=== PATIENT | female | born 1950 | race Caucasian/White ===

== ENCOUNTER 2016-09-01 11:19 | Emergency (ER) | payer OTHER ==
[2016-09-01 12:02] VITALS: BP 136/90; PULSE 71; RESP 20; TEMP 98.2; O2SAT 96
[2016-09-01] MEDS ORDERED: predniSONE 20 MG TAB PO ONE (12:58)
--- NOTE | 2016-09-01 13:24 | UCPHY ---
H & P Patient Type: New HPI/ROS: CHIEF COMPLAINT: Cough HISTORY OF PRESENT ILLNESS: several days duration of cough. Some congestion. Some malaise. No chest pain of any kind. No shortness of breath. No headache, fevers, body aches or chills. No nausea or vomiting. No urinary complaints. No trauma. No smoking currently or ever. No history of pulmonary diseases. Symptoms have worsened throughout the days without any predictable improving modifying factors. No headaches or dizziness. No other associated complaints or modifying factors. REVIEW OF SYSTEMS: Ten systems reviewed and are negative unless otherwise noted in the HPI EXAMINATION General Appearance: Alert, no distress Head: normocephalic, atraumatic Eyes: Pupils equal and round, no conjunctival pallor or injection ENT, Mouth: Mucous membranes moist Neck: Normal inspection, supple, non-tender Respiratory: Scattered rhonchi. No consolidation. No distress or retractions Cardiovascular: Regular rate and rhythm Gastrointestinal: Abdomen is soft and nontender Back: non-tender, no bony abnormalities Neurological: A&O, nonfocal, normal gait Skin: Warm and dry, no rash Extremities: Nontender, no pedal edema Psychiatric: Mood and affect normal MDM: cough without any chest pain or history or exam that would suggest pneumonia. Lung sounds do reveal some rhonchi but no consolidation or suspicion of pneumonia. Vital signs are well within normal limits on room air. She is well- appearing and in no acute distress. Nonsmoker. No indication for laboratory studies or chest x-ray, and patient has requested that we not perform a chest x- ray. Treat her presumptively for bronchitis cover for the possibility of bacterial involvement. Follow up with primary care physician in ED precautions discussed. Smoking Status: Never smoked Constitutional: Initial Vital Signs Temperature (C) 98.2 F 09/01/16 11:53 Heart Rate 71 09/01/16 11:53 Respiratory Rate 20 09/01/16 11:53 Blood Pressure 136/90 H 09/01/16 11:53 O2 Sat (%) 96 09/01/16 11:53 O2 Delivery Mode Room Air Allergies/Adverse Reactions: aspirin Allergy (Mild, Verified 09/01/16 11:51) Unknown Home Medications: Medication Instructions Recorded Azithromycin [Zithromax] 250 mg PO DAILY #6 tab 09/01/16 Benzonatate [Tessalon Pearles (RX)] 100 mg PO Q6-8PRN PRN #12 cap 09/01/16 Lipitor 09/01/16 Departure - Departure Disposition: Home, Routine, Self-Care Clinical Impression: Bronchitis, Cough Condition: Good Instructions: Acute Bronchitis (ED), Dextromethorphan (By mouth) Additional Instructions: ED precautions as discussed for worsening symptoms, chest pain or shortness of breath. Prescriptions: Benzonatate [Tessalon Pearles (RX)] 100 mg PO Q6-8PRN PRN #12 cap PRN Reason: Cough, Mild Azithromycin [Zithromax] 250 mg PO DAILY #6 tab - PQRS PQRS Measurement: not applicable
== END 2016-09-01 13:39 | disposition home or self-care (01) ==
LOC: CED 11:19
DX: J20.9 Acute bronchitis, unspecified (principal)
CPT/HCPCS: 99203-PO; G0463-PO

== ENCOUNTER → 2016-12-02 | Outpatient (CLI) | payer OTHER ==
[~2016-12-02] MED LIST: GADOBUTROL 10 ML VIAL IVP ONE
[2016-12-02 13:22] LABS: CREATININE 0.9 mg/dL (0.6-1.0); GLOMERULAR FILTRATION RATE > 60
== END ==
LOC: FIMAGING 12:38
PROVIDERS: ATTEND Neurological Surgery
DX: M48.06 Spinal stenosis, lumbar region (principal); M43.16 Spondylolisthesis, lumbar region; M51.26 Other intervertebral disc displacement, lumbar region; M12.88 Other specific arthropathies, not elsewhere classified, other specified site; Z86.018 Personal history of other benign neoplasm
CPT/HCPCS: 72158; A9585

== ENCOUNTER → 2017-01-14 | Outpatient (CLI) | payer OTHER | LOC: FIMAGING 11:53 | PROVIDERS: ATTEND Physician Assistant Surgical | DX: M50.921 Unspecified cervical disc disorder at C4-C5 level (principal); M50.922 Unspecified cervical disc disorder at C5-C6 level; M51.36 Other intervertebral disc degeneration, lumbar region; M51.35 Other intervertebral disc degeneration, thoracolumbar region; Z98.1 Arthrodesis status ==

== ENCOUNTER 2017-02-09 06:10 | Inpatient (IN) | payer OTHER ==
[~2017-02-09 06:10] MED LIST changes: +CHLORHEXIDINE GLUC HIBICLENS 118 ML BTL TP ONE; +DEXAMETHASONE 10 MG/ML VIAL IVP ONE; -GADOBUTROL 10 ML VIAL IVP ONE; +ceFAZolin 2 GM/DEXTROSE 100 ML IV ONE; +fentaNYL 100 MCG/2 ML INJ IT ONE; +morphINE PF 5 MG/10 ML INJ IT ONE
[2017-02-09] MEDS ORDERED: LR 1,000 ML IV ONE (06:31)
[2017-02-09] MEDS ORDERED: LIDOCAINE 1% 5 ML SDV ID PRN (06:31)
--- NOTE | 2017-02-09 07:07 | PDHPUP ---
History & Physical Update H&P update statement: This history and physical update is based on an assessment of the patient which was completed after admission or registration (within 24 hours), but prior to the surgery/procedure. H&P update: H&P reviewed & patient examined, no change in patient's condition since H&P completed
[2017-02-09] MEDS ORDERED: THROMBIN (BOVINE) 5,000 UNIT VIAL TP ONE (07:54)
[2017-02-09] MEDS ORDERED: BUPIVACAINE/EPI 0.25% 30 ML SDV ONE (07:54)
[2017-02-09] MEDS ORDERED: BACITRACIN 50,000 UNITS/10 ML SYR IRR ONE (07:54)
[2017-02-09] MEDS ORDERED: BUPIVACAINE 0.25% 30 ML SDV ONE (07:54)
[2017-02-09] MEDS ORDERED: MIDAZOLAM 2 MG/2 ML VIAL ONE (08:04)
[2017-02-09] MEDS ORDERED: PROPOFOL/EMULSION 500 MG/50 ML BOTTLE IV ONE (08:04)
[2017-02-09] MEDS ORDERED: fentaNYL 100 MCG/2 ML INJ ONE ×3 (08:04→09:54)
[2017-02-09] MEDS ORDERED: ROCURONIUM 50 MG/5 ML VIAL ONE (08:09)
[2017-02-09] MEDS ORDERED: LIDOCAINE 2% 5 ML SDV ONE (08:09)
[2017-02-09] MEDS ORDERED: ALBUMIN 5% 250 ML BOTTLE IV ONE (08:18)
[2017-02-09] MEDS ORDERED: MEPERIDINE 25 MG/ML SYR IVP PRN (08:54)
[2017-02-09] MEDS ORDERED: PROMETHAZINE HCL 25 MG/ML INJ IVP PRN (08:54)
[2017-02-09] MEDS ORDERED: METOCLOPRAMIDE 10 MG/2 ML VIAL IVP PRN (08:54)
[2017-02-09] MEDS ORDERED: ONDANSETRON 4 MG/2 ML VIAL IVP PRN ×2 (08:54→12:22)
[2017-02-09] MEDS ORDERED: LR 500 ML IV PRN (08:54)
[2017-02-09] MEDS ORDERED: DEXAMETHASONE 4 MG/ML VIAL IVP PRN (08:54)
[2017-02-09] MEDS ORDERED: fentaNYL 100 MCG/2 ML INJ IVP PRN (08:54)
[2017-02-09] MEDS ORDERED: NALOXONE HCL 0.4 MG/ML INJ IVP PRN ×2 (08:54→12:22)
--- NOTE | 2017-02-09 08:58 | PDANEPAE ---
ANE Past Medical History - Cardiovascular History Hx Hypertension: No Hx Arrhythmias: No Hx Chest Pain: No Hx Coronary Artery / Peripheral Vascular Disease: No Hx CHF / Valvular Disease: No Hx Palpitations: No - Pulmonary History Hx COPD: No Hx Asthma/Reactive Airway Disease: No Hx Recent Upper Respiratory Infection: No Hx Oxygen in Use at Home: No - Neurologic History Hx Cerebrovascular Accident: No Hx Seizures: No Hx Dementia: No - Endocrine History Hx Diabetes: No - Renal History Hx Renal Disorders: No - Liver History Hx Hepatic Disorders: No - Neurological & Psychiatric Hx Hx Neurological and Psychiatric Disorders: No - Cancer History Hx Cancer: No - Congenital Disorder History Hx Congenital Disorders: No - GI History Hx Gastrointestinal Disorders: No - Chronic Pain History Chronic Pain: Yes (back pain) ANE Review of Systems - Exercise capacity METS (RN): 4 METS ANE Patient History - Allergies Allergies/Adverse Reactions: aspirin Allergy (Mild, Verified 01/24/17 11:50) DROPPED BP - Home Medications Home Medications: Atorvastatin Calcium [Lipitor 10 mg (*)] 10 mg PO DAILY 09/01/16 [Last Taken 07/14] Cholecalciferol Vit D3 [Vitamin D3 (*)] 1,000 units PO DAILY 01/24/17 [Last Taken 02/02/17] Docusate Sodium [Colace 100 MG (*)] 100 mg PO DAILY PRN 01/24/17 [Last Taken 08/13] Acetaminophen [Tylenol ES 500 mg (*)] 500 mg PO DAILY PRN 01/31/17 [Last Taken 02/08/17] Vitamin B Complex [B Complex] 1 each PO DAILY 01/31/17 [Last Taken 02/08/17] valACYclovir [Valtrex (*)] 500 mg PO DAILY 01/31/17 [Last Taken 02/08/17] - NPO status NPO Since - Liquids (Date): 02/08/17 NPO Since - Liquids (Time): 21:00 NPO Since - Solids (Date): 02/08/17 NPO Since - Solids (Time): 18:00 - Smoking Hx Smoking Status: Never smoked - Family Anes Hx Family Hx Anesthesia Complications: none ANE Labs/Vital Signs - Vital Signs Blood Pressure: 114/73 Heart Rate: 63 Respiratory Rate: 16 O2 Sat (%): 91 Height: 157.48 cm Weight: 54.431 kg ANE Physical Exam - Airway Mallampati Score: Class 1 Mouth exam: normal dental/mouth exam - Pulmonary Pulmonary: no respiratory distress - Cardiovascular Cardiovascular: regular rate and rhythym - ASA Status ASA Status: II ANE Anesthesia Plan Anesthesia Plan: general endotracheal anesthesia
[2017-02-09] MEDS ORDERED: epHEDrine SULFATE 10 MG/ML SYR ONE ×3 (09:04→10:18)
[2017-02-09] MEDS ORDERED: METOCLOPRAMIDE 10 MG/2 ML VIAL ONE (09:14)
[2017-02-09] MEDS ORDERED: ONDANSETRON 4 MG/2 ML VIAL ONE (09:14)
[2017-02-09] MEDS ORDERED: RANITIDINE 50 MG/2 ML VIAL ONE (09:14)
[2017-02-09] MEDS ORDERED: SUGAMMADEX SODIUM 200 MG/2 ML VIAL IVP ONE (09:14)
[2017-02-09] MEDS ORDERED: morphINE PF 10 MG/10 ML INJ ONE (09:54)
[2017-02-09] MEDS ORDERED: PHENYLEPHRINE HCL 100 MCG/ML SYR ONE (10:18)
[2017-02-09] MEDS ORDERED: DOCUSATE SODIUM 100 MG CAP PO PRN (10:49)
--- NOTE | 2017-02-09 10:57 | SOAPPROG ---
SOAP Progress Note Assessment/Plan: Assessment: 66 yo F sp L3/4 TLIF Plan: stable LSO brace when out of bed PT/OT scd/john/lovenox for dvt prophylaxis please call with neuro changes 02/09/17 10:55 Subjective: + back pain, no leg pain. Objective: Vital Signs Temp Pulse Resp BP Pulse Ox 37.2 C 63 16 114/73 91 L 02/09/17 06:34 02/09/17 08:57 02/09/17 08:57 02/09/17 08:57 02/09/17 08:57 Awake, alert PERRL, no facial droop MOEx 4, 5/5 LE + light touch ICD10 Worksheet Patient Problems: Problems Problem Status Onset Fusion of spine of lumbar region Acute - ICD10 Problem Qualifiers (1) Fusion of spine of lumbar region
--- NOTE | 2017-02-09 11:22 | POSTANESTH ---
Post Anesthetic Evaluation Cardiovascular Status: Normal, Stable Respiratory Status: Normal, Stable Level of Consciousness/Mental Status: Mildly Sleepy, Arousable Pain Control: Adequate, Prn Tx Ordered Nausea/Vomiting Control: Adequate, Prn Tx Ordered Complications Possibly Related to Anesthesia: None Noted
--- NOTE | 2017-02-09 12:18 | GOP ---
[f rep st] OPERATIVE REPORT DATE OF OPERATION: 02/09/2017 SURGEON: Aldo Stack MD COKE BURNER: Greg Westbrook. ANESTHESIA: General endotracheal. PREOPERATIVE DIAGNOSIS: Critical spinal stenosis at L3-4 with unstable spondylolisthesis and intrac table low back pain and right greater than left lower extremity radiculopathy and neurogenic claudic ation. Failed conservative care. POSTOPERATIVE DIAGNOSIS: Critical spinal stenosis at L3-4 with unstable spondylolisthesis and intra ctable low back pain and right greater than left lower extremity radiculopathy and neurogenic claudi cation. Failed conservative care. PROCEDURE PERFORMED: Mini open exposure for right-sided far lateral transpedicular decompression at the L3-4 level with a redo right L4-5 posterior hemilaminectomy and foraminotomy. L3-4 posterior n onsegmental (pedicles ). Fixation and posterolateral fusion with local autograft and bone morphogenic protein and morselized allograft. L3-4 posterior/transforaminal lumbar interbody fusion with 2 structural PEEK interbody spacers, local autograft and bone morphogenic protein and morseliz ed allograft. Use of intraoperative microscopy, fluoroscopy and computer volumetric stereotactic na vigation with intraoperative neurophysiologic testing. Injection of intrathecal narcotic analgesics for postoperative pain control. FINDINGS: ESTIMATED BLOOD LOSS: 75 cc. INDICATIONS: The patient is a 66-year-old woman with critical spinal stenosis and lateral recess im pingement at the L3-4 level as well as unstable spondylolisthesis. She has had prior surgery at the L4-5 level. She has failed extensive conservative care and presents now for surgical decompression and stabilization. DESCRIPTION OF PROCEDURE: After informed consent was obtained, the patient was taken to the operati ng room and placed in a prone position on David table. The lumbosacral area was prepped and drape d in a sterile fashion. After fluoroscopic localization of the correct level, the subcutaneous and intramuscular tissues were infiltrated with local anesthesia. A midline linear incision was then cr eated over the L3-4 spinous processes. This was carried down the fascial layer, which was incised w ith the monopolar electrocautery and carried in the subperiosteal plane along the spinous processes at the lamina of L3. The dissection was carried down to L5 in order to identify normal tissue and c ome back onto the L4 level where there was no lamina or spinous process. Once the normal anatomy wa s carefully dissected out and re-verified using intraoperative fluoroscopy, the area between the spi nous processes was carefully exposed. Under high-power microscopy, the right-sided far lateral melendez spedicular decompression was performed at the L3-4 level with complete unroofing of the facet joint and neural foramina at L3 and L4. There was quite a bit of scar tissue from the prior surgery at L4 -5 and a redo L4-5 posterior hemilaminectomy and foraminotomy was necessary in order to adequately d ecompress the thecal sac and nerve root. Following adequate decompression, the [email or web address] ional system was brought in, and using computer volumetric stereotactic navigation, pedicle screws w ere placed at L3 and L4 bilaterally. Each individual screw was tested neurophysiologically with mon opolar stimulation and interpretation of the potentials by the surgeon. Rods were then placed and s ecured under distraction, during which time a complete diskectomy was performed at the L3-4 level wi th preparation of the endplates and placement of 2 structural PEEK interbody spacers, local autograf t bone morphogenic protein and morselized allograft for an L3-4 posterior/transforaminal lumbar inte rbody fusion. Following this, the screw and shalini system were placed in a slight amount of compressio n in order to facilitate bony union and to minimize the potential for posterior graft migration. Fo llowing re-verification of good positioning of the screws, rods and interbody spacers, the wound was copiously irrigated with antibiotic irrigation, and meticulous hemostasis was again achieved. 200 mcg of Duramorph along with 50 mcg of fentanyl were injected intrathecally for postoperative pain co ntrol. The remaining facet joint and lamina on the left side were extensively decorticated, and the residual local autograft along with bone morphogenic protein was placed out laterally for posterola teral fusion at the L3-4 level. The subcutaneous and intramuscular tissues were re-infiltrated with local anesthesia, and the wound was closed in a layered fashion using interrupted Vicryl sutures, f ollowed by Steri-Strips on the skin. COMPLICATIONS: None. DISPOSITION: The patient was extubated and transferred to the recovery room in stable condition. /[id number]/MODL
[2017-02-09] MEDS ORDERED: MAGNESIUM HYDROXIDE 30 ML UDCUP PO PRN (12:22)
[2017-02-09] MEDS ORDERED: HYDROmorphONE/DILAUDID 6 MG/30 ML PCA IV PRN (12:22)
[2017-02-09] MEDS ORDERED: ONDANSETRON DISINTEGRATING 4 MG TAB PO PRN (12:22)
[2017-02-09] MEDS ORDERED: oxyCODONE IR 5 MG TAB PO PRN ×2 (12:22)
[2017-02-09] MEDS ORDERED: LACTULOSE 20 GM/30 ML UDCUP PO PRN (12:22)
[2017-02-09] MEDS ORDERED: METHOCARBAMOL 750 MG TAB PO PRN (12:22)
[2017-02-09] MEDS ORDERED: NS 1,000 ML IV SCH (12:22)
[2017-02-09] MEDS ORDERED: BISACODYL 10 MG SUPP PR PRN (12:22)
[2017-02-09] MEDS ORDERED: diphenhydrAMINE 25 MG CAP PO PRN (12:22)
[2017-02-09] MEDS ORDERED: HYDROCODONE/APAP 5/325 TAB PO PRN (12:22)
[2017-02-09] MEDS: ACETAMINOPHEN 500 MG TAB PO SCH ×2 (13:12→22:25)
[2017-02-09] MEDS: ceFAZolin 2 GM/DEXTROSE 100 ML IV SCH ×2 (13:13→22:35)
[2017-02-09] MEDS: POLYETHYLENE GLYCOL 3350 17 GM PKT PO SCH ×2 (19:19→22:25)
[2017-02-09] MEDS: SENNOSIDES/DOCUSATE SODIUM TAB PO SCH (22:24)
[2017-02-09] MEDS: FAMOTIDINE 20 MG TAB PO SCH (22:25)
[2017-02-09] MEDS: morphINE SR 15 MG TAB PO SCH (22:29)
[2017-02-10] MEDS: ACETAMINOPHEN 500 MG TAB PO SCH ×2 (06:38→14:57)
--- NOTE | 2017-02-10 07:37 | SOAPPROG ---
SOAP Progress Note Assessment/Plan: Assessment: 66 yo F POD #1 L3/4 TLIF Plan: stable and doing well overall :) LSO brace when out of bed PT/OT x-rays today scd/john/lovenox for dvt prophylaxis please call with neuro changes dc home later today patient was seen by DR Yuan 02/09/17 10:55 02/10/17 07:35 Subjective: + back pain, no leg pain, no weakness. Objective: Vital Signs Temp Pulse Resp BP Pulse Ox 37.1 C 72 16 108/56 L 94 02/10/17 03:41 02/10/17 03:41 02/10/17 03:41 02/10/17 03:41 02/10/17 03:41 02/09/17 02/10/17 02/11/17 05:59 05:59 05:59 Intake Total 1100 Output Total 645 200 Balance 455 -200 AAOX4, + FC PERRL, no facial droop 5/5 + light touch C/D/I ICD10 Worksheet Patient Problems: Problems Problem Status Onset Fusion of spine of lumbar region Acute - ICD10 Problem Qualifiers (1) Fusion of spine of lumbar region
[2017-02-10] MEDS: SENNOSIDES/DOCUSATE SODIUM TAB PO SCH (08:28)
[2017-02-10] MEDS: FAMOTIDINE 20 MG TAB PO SCH (08:28)
[2017-02-10] MEDS: POLYETHYLENE GLYCOL 3350 17 GM PKT PO SCH (08:29)
[2017-02-10] MEDS ORDERED: CHOLECALCIFEROL VIT D3 1,000 UNITS TAB PO SCH (09:00)
[2017-02-10] MEDS ORDERED: ATORVASTATIN CALCIUM 10 MG TAB PO SCH (09:00)
[2017-02-10] MEDS ORDERED: ENOXAPARIN 40 MG/0.4 ML SYR SC SCH (09:00)
[2017-02-10] MEDS ORDERED: valACYclovir 500 MG TAB PO SCH (09:00)
[2017-02-10] MEDS: morphINE SR 15 MG TAB PO SCH (09:01)
[2017-02-10 09:40] VITALS: O2SAT 93
[2017-02-10 11:54] VITALS: BP 98/51; PULSE 72; RESP 14; TEMP 98.1
--- NOTE | 2017-02-10 15:24 | PDIAF ---
- Diagnosis Code Status: Full Code - Medication Management Discharge Medications: Medications to Continue on Transfer Atorvastatin Calcium [Lipitor 10 mg (*)] 10 mg PO DAILY 09/01/16 [Last Taken 07/14] Cholecalciferol Vit D3 [Vitamin D3 (*)] 1,000 units PO DAILY 01/24/17 [Last Taken 02/02/17] Docusate Sodium [Colace 100 MG (*)] 100 mg PO DAILY PRN 01/24/17 [Last Taken 08/13] Acetaminophen [Tylenol ES 500 mg (*)] 500 mg PO DAILY PRN 01/31/17 [Last Taken 02/08/17] Vitamin B Complex [B Complex] 1 each PO DAILY 01/31/17 [Last Taken 02/08/17] valACYclovir [Valtrex (*)] 500 mg PO DAILY 01/31/17 [Last Taken 02/08/17] Diazepam [Valium 5 MG (*)] 5 mg PO TID PRN #15 tab 02/10/17 [Last Taken Unknown] Methocarbamol [Robaxin 750 mg (*)] 750 mg PO QID PRN #0 tab 02/10/17 [Last Taken Unknown] Ondansetron Odt [Zofran Odt 4 mg (*)] 4 - 8 mg PO Q6HRS PRN #0 tab 02/10/17 [ Last Taken Unknown] morphINE SR [Ms Contin/Oramorph 15 mg (*)] 30 mg PO BID #0 tab 02/10/17 [Last Taken Unknown] oxyCODONE IR [Oxycodone Ir (*)] 5 - 10 mg PO Q4HRS PRN #0 tab 02/10/17 [Last Taken Unknown] Discharge Medications: Refer to the Discharge Home Medication list for PRN reason. - Orders Services needed: Registered Nurse, Physical Therapy, Occupational Therapy Diet Recommendation: no restrictions on diet Diet Texture: Regular Texture Diet - Follow Up Care Current Providers and Referrals: Sonia Tavares MD [Primary Care Provider] -
== END 2017-02-10 17:09 | disposition home health service (06) | DRG 460 ==
LOC: F3N 06:10
PROVIDERS: ADMIT Neurological Surgery; ATTEND Neurological Surgery
PROC: 0SG00AJ Fusion of Lumbar Vertebral Joint with Interbody Fusion Device, Posterior Approach, Anterior Column, Open Approach (ICD-10-PCS; principal; 2017-02-09 08:15)
PROC: 01NB0ZZ Release Lumbar Nerve, Open Approach (ICD-10-PCS; principal; 2017-02-09 08:15)
PROC: 3E0U0GB Introduction of Recombinant Bone Morphogenetic Protein into Joints, Open Approach (ICD-10-PCS; principal; 2017-02-09 08:15)
DX: M48.06 Spinal stenosis, lumbar region (principal); M48.56XA Collapsed vertebra, not elsewhere classified, lumbar region, initial encounter for fracture; M51.16 Intervertebral disc disorders with radiculopathy, lumbar region; Z98.1 Arthrodesis status
CPT/HCPCS: 97161-GP; 97166-GO; C1713; C1762; G8978-GP-CJ; G8979-GP-CI; G8987-GO-CI; G8988-GO-CI; G8989-GO-CI; J0690; J1650; J2250; J2274; J2370; J2405; J2704; J2765; J2780; J3010; P9041

== ENCOUNTER → 2017-04-12 | Outpatient (CLI) | payer OTHER | LOC: FIMAGING 15:58 | PROVIDERS: ATTEND Internal Medicine | DX: Z12.31 Encounter for screening mammogram for malignant neoplasm of breast (principal) | CPT/HCPCS: G0202 ==

== ENCOUNTER → 2017-06-05 | Outpatient (CLI) | payer OTHER | LOC: CIMAGING 17:47 | PROVIDERS: ATTEND Physician Assistant Surgical | DX: Z09 Encounter for follow-up examination after completed treatment for conditions other than malignant neoplasm (principal); Z98.1 Arthrodesis status | CPT/HCPCS: 72100-PO ==

== ENCOUNTER → 2017-09-15 | Outpatient (CLI) | payer OTHER | LOC: CIMAGING 17:28 | PROVIDERS: ATTEND Physician Assistant Surgical | DX: Z98.1 Arthrodesis status (principal) | CPT/HCPCS: 72100-PO ==

== ENCOUNTER → 2018-01-02 | Outpatient (CLI) | payer OTHER | LOC: FIMAGING 14:44 | PROVIDERS: ATTEND Physician Assistant Surgical | DX: Z98.1 Arthrodesis status (principal); M35.7 Hypermobility syndrome ==

== ENCOUNTER 2018-03-06 08:21 | Inpatient (IN) | payer OTHER ==
[~2018-03-06 08:21] MED LIST changes: +*INTRAOP 1000MG*TRANEX ACID/NS 100 ML IV ONE; -CHLORHEXIDINE GLUC HIBICLENS 118 ML BTL TP ONE; -DEXAMETHASONE 10 MG/ML VIAL IVP ONE; +TRANEXAMIC ACID 1,000 MG in NS (SYRINGE) 50 ML IV ONE; -ceFAZolin 2 GM/DEXTROSE 100 ML IV ONE; -fentaNYL 100 MCG/2 ML INJ IT ONE; -morphINE PF 5 MG/10 ML INJ IT ONE
[2018-03-06] MEDS ORDERED: LIDOCAINE 1% 2 ML INJ ID PRN (08:52)
[2018-03-06] MEDS ORDERED: ceFAZolin 2 GM/DEXTROSE 100 ML IV ONE (08:52)
[2018-03-06] MEDS ORDERED: LR 1,000 ML IV ONE (08:52)
[2018-03-06] MEDS ORDERED: ACETAMINOPHEN 500 MG TAB PO ONE (08:52)
[2018-03-06] MEDS ORDERED: GABAPENTIN 300 MG CAP PO ONE (08:52)
[2018-03-06] MEDS ORDERED: BUPIVACAINE 0.25% 30 ML SDV ONE ×2 (09:57→11:11)
[2018-03-06] MEDS ORDERED: CHLORHEXIDINE GLUC HIBICLENS 118 ML BTL TP ONE (09:57)
[2018-03-06] MEDS ORDERED: THROMBIN (BOVINE) 5,000 UNIT VIAL TP ONE (09:57)
[2018-03-06] MEDS ORDERED: BACITRACIN 50,000 UNITS/10 ML SYR IRR ONE ×2 (09:58→14:04)
[2018-03-06] MEDS ORDERED: CITRATE DEXTROSE SOLN 500 ML BAG ONE (09:58)
[2018-03-06] MEDS ORDERED: EPINEPHrine 1 MG/ML INJ ONE (09:58)
[2018-03-06] MEDS ORDERED: THROMBIN (BOVINE) 20,000 UNIT VIAL TP ONE (10:06)
--- NOTE | 2018-03-06 10:46 | PDHPUP ---
History & Physical Update H&P update statement: This history and physical update is based on an assessment of the patient which was completed after admission or registration (within 24 hours), but prior to the surgery/procedure. H&P update: no change in patient's condition since H&P completed
[2018-03-06] MEDS ORDERED: PROPOFOL 200 MG/20 ML VIAL ONE ×2 (10:59)
--- NOTE | 2018-03-06 11:06 | PDANEPAE ---
ANE Past Medical History - Cardiovascular History Hx Hypertension: No Hx Arrhythmias: No Hx Chest Pain: No Hx Coronary Artery / Peripheral Vascular Disease: No Hx CHF / Valvular Disease: No Hx Palpitations: No - Pulmonary History Hx COPD: No Hx Asthma/Reactive Airway Disease: No Hx Recent Upper Respiratory Infection: No Hx Oxygen in Use at Home: No Hx Sleep Apnea: No Sleep Apnea Screening Result - Last Documented: Negative - Neurologic History Hx Cerebrovascular Accident: No Hx Seizures: No Hx Dementia: No - Endocrine History Hx Diabetes: No Hypothyroid: No Hyperthyroid: No Obesity: no - Renal History Hx Renal Disorders: No Renal History Comment: UTIs distant past. - Liver History Hx Hepatic Disorders: No - Neurological & Psychiatric Hx Hx Neurological and Psychiatric Disorders: Yes Neurological / Psychiatric History Comment: sciatic pain - Cancer History Hx Cancer: No - Congenital Disorder History Hx Congenital Disorders: No - GI History Hx Gastrointestinal Disorders: No Gastrointestinal History Comment: easily constipated - Other Health History Other Health History: 04/11/15 trauma R shoulder to be repaired. - Chronic Pain History Chronic Pain: No - Surgical History Prior Surgeries: 2004-benign growth removed around lumbar spinal cord. Tubes tied 1977. 2004-cervical herniated disc repair. pilondal cyst removed. right rotator cuff repiar 06/13. spinal fusion 2016 ANE Review of Systems Review of Systems: - Exercise capacity METS (RN): 5 METS ANE Patient History - Allergies Allergies/Adverse Reactions: aspirin Allergy (Mild, Verified 02/16/18 16:21) DROPPED BP - Home Medications Home Medications: Atorvastatin Calcium [Lipitor 10 mg (*)] 10 mg PO DAILY18 09/01/16 [Last Taken 03/05/18] Docusate Sodium [Colace 100 MG (*)] 100 mg PO HS 01/24/17 [Last Taken 03/05/18] Acetaminophen [Tylenol ES 500 mg (*)] 500 mg PO DAILY PRN 01/31/17 [Last Taken 02/27/18] valACYclovir [Valtrex (*)] 500 mg PO DAILY 01/31/17 [Last Taken 03/05/18] Gabapentin [Neurontin 300 MG (*)] 300 mg PO TID 02/15/18 [Last Taken 03/06/18] Sennosides/Docusate Sodium [Senna-S Tablet] 1 each PO DAILY 02/15/18 [Last Taken 03/05/18] - NPO status NPO Since - Liquids (Date): 03/05/18 NPO Since - Liquids (Time): 18:00 NPO Since - Solids (Date): 03/05/18 NPO Since - Solids (Time): 18:00 - Smoking Hx Smoking Status: Never smoked - Family Anes Hx Family Hx Anesthesia Complications: none ANE Labs/Vital Signs - Vital Signs Blood Pressure: 107/73 Heart Rate: 66 Respiratory Rate: 18 O2 Sat (%): 94 Height: 157.48 cm Weight: 56.699 kg ANE Physical Exam - Airway Neck exam: decreased ROM Mallampati Score: Class 2 Mouth exam: small mouth opening - Pulmonary Pulmonary: no respiratory distress - Cardiovascular Cardiovascular: regular rate and rhythym ANE Anesthesia Plan Anesthesia Plan: general endotracheal anesthesia
[2018-03-06] MEDS ORDERED: fentaNYL 250 MCG/5 ML INJ ONE (11:14)
[2018-03-06] MEDS ORDERED: REMIFENTANIL HCL 1 MG VIAL ONE ×2 (11:15)
[2018-03-06] MEDS ORDERED: ePHEDrine SULFATE 25 MG/5 ML SYR ONE (11:27)
[2018-03-06] MEDS ORDERED: ONDANSETRON 4 MG/2 ML VIAL ONE (11:28)
[2018-03-06] MEDS ORDERED: DEXAMETHASONE 4 MG/ML VIAL ONE (11:28)
[2018-03-06] MEDS ORDERED: ROCURONIUM 50 MG/5 ML VIAL ONE (11:28)
[2018-03-06] MEDS ORDERED: LIDOCAINE 2% 5 ML SDV ONE (11:28)
[2018-03-06] MEDS ORDERED: PHENYLEPHRINE HCL 100 MCG/ML SYR ONE (12:15)
[2018-03-06] MEDS ORDERED: GLYCOPYRROLATE 0.2 MG/1 ML VIAL ONE ×2 (12:30→15:04)
[2018-03-06] MEDS: fentaNYL 50 MCG in SYRINGE INTRATHECAL 1 SYR IT ONE ×2 (14:46→15:03)
[2018-03-06] MEDS: morphINE PF 0.2 MG in SYRINGE INTRATHECAL 1 SYR IT ONE ×2 (14:47→15:03)
[2018-03-06] MEDS ORDERED: LIDOCAINE 1% 2 ML INJ ONE (14:54)
--- NOTE | 2018-03-06 15:45 | SOAPPROG ---
SOAP Progress Note Assessment/Plan: POST OP CHECK Assessment: doing well sp/ L3/4 hdwr removal and L2/3 and L4/5 TLIF with L2-5 fusion Plan: CPM IN PACU AVINASH to bulb suction HOB as tolerated transfer to floor per protocol 03/06/18 15:43 Subjective: groggy, but opens eyes to tactile stim and follows commands, appears comfortable Objective: Vital Signs Temp Pulse Resp BP Pulse Ox 36.8 C 66 18 107/73 94 03/06/18 08:56 03/06/18 11:06 03/06/18 11:06 03/06/18 11:06 03/06/18 11:06 Vitals: BP:117/86 HR:82 O2: 100% Neuro: FULLER, sens +LT throughout, following commands ICD10 Worksheet Patient Problems: Problems Problem Status Onset Fusion of spine of lumbar region Acute
--- NOTE | 2018-03-06 15:46 | GOP ---
[f rep st] OPERATIVE REPORT DATE OF OPERATION: 03/06/2018 SURGEON: Aldo Stack MD NEUROSURGEON: Aldo Stack MD METALIZING MACHINE OPERATOR AUTOMATIC: MARANDA Zuluaga ANESTHESIA: General endotracheal. PREOPERATIVE DIAGNOSIS: 1. Severe multilevel lumbar stenosis/sedation adjacent level degeneration at L2-3 and L4, status pos t prior L3-4 decompression stabilization with instrumentation. 2. Right-sided L2-3 facet cyst and severe lateral recess and neural foraminal encroachment at both L 2-3 and L4-5. 3. Intractable back pain, intractable right greater than left lower extremity radicular and neurogen ic claudication symptoms. Failed conservative care. POSTOPERATIVE DIAGNOSIS: 1. Severe multilevel lumbar stenosis/sedation adjacent level degeneration at L2-3 and L4, status pos t prior L3-4 decompression stabilization with instrumentation. 2. Right-sided L2-3 facet cyst and severe lateral recess and neural foraminal encroachment at both L 2-3 and L4-5. 3. Intractable back pain, intractable right greater than left lower extremity radicular and neurogen ic claudication symptoms. Failed conservative care. PROCEDURE PERFORMED: 1. Removal of posterior nonsegmental (pedicle screw) fixation at L3-4 with re-instrumentation from L 2-L5 with pedicle screws and axle device. 2. Right-sided L2-3 and L4-5 far lateral transpedicular decompression with facetectomies and facet c yst removal at L2-3. 3. L2 through L5 posterolateral fusion with L2-3 and L4-5 posterior/transforaminal lumbar interbody fusions with 2 structural PEEK interbody spacers, local autograft and bone morphogenic protein at eac h level. 4. Use of intraoperative microscopy, fluoroscopy, and computer volumetric stereotactic navigation [facility] intraoperative neurophysiologic testing. 5. Injection of intrathecal narcotic analgesics and subcutaneous and intramuscular local anesthesia for postoperative pain control. FINDINGS: ESTIMATED BLOOD LOSS: 275 cc. INDICATIONS: Patient has a history of a L3-4 decompression stabilization with instrumentation and se alex adjacent level degeneration at the above area and both levels L2-3 and L4-5 with severe central canal and neural foraminal and lateral recess impingement, and a facet cyst at L2-3. She has failed extensive conservative care and has ongoing intractable back and leg symptoms and presents now for re moval and replacement of instrumentation, fusion, and decompression from L2-L5. DESCRIPTION OF PROCEDURE: After informed consent was obtained, the patient was taken to the operatin g room and placed in the prone position on the David table. The lumbosacral area was prepped and d raped in a sterile fashion. After fluoroscopic localization of the correct level, the subcutaneous a nd intramuscular tissues were infiltrated with local anesthesia. A midline linear incision was then created from approximately L2-L5. This was carried down to the fa scial layer, which was then incised using monopolar electrocautery and carried in the subperiosteal p albert along the spinous processes and out the lamina bilaterally. Intraoperative fluoroscopy was agai n used to verify the correct levels. The prior instrumentation was carefully identified and carefull y dissected out and removed in the standard fashion at L3-4. The fusion was inspected and explored. Following this, the dissection was carried rostrally and caudally from L2 to L5. There was quite a b it of scar tissue that was carefully dissected out and after re-verification of correct levels, right -sided far lateral transpedicular decompressions were performed at the L2-3 and L4-5 levels with exte nsion into the L3-4 level with redo posterior hemilaminotomy. After complete facetectomies and neura l foraminal lateral recess decompressions at the L2-3 and L4-5 levels, the microscope and instruments were angled across the midline, and left-sided decompressions were achieved as well while leaving th e joints intact superficially. Following this, the [employer] neuronavigational system was brought in and using computer volumetric bib reotactic navigation, pedicle screws were placed at L2, L3, L4, and L5 bilaterally. Each individual screw was tested neurophysiologically with monopolar electrostimulation and interpretation of the pot entials by the surgeon. Biplanar fluoroscopy was also utilized to verify good position of the screws . Short rods were then placed first at L2-3, then L4-5, during which time, the interspaces were dist racted and complete diskectomies were performed with preparation of endplates, and placement of 2 str uctural PEEK interbody spacers, local autograft and bone morphogenic protein at each level for L2-3 a nd L4-5 posterior/transforaminal lumbar interbody fusions. The short rods were then removed and long er rods with maximal lordosis were placed from L2 to L5 with a slight amount of compression across th e interspaces in order to facilitate bony union and to minimize the potential for posterior graft sid ration. Following re-verification of good position of the screws, rods, and interbody spacers using biplanar fluoroscopy, 200 mcg of Duramorph along with 50 mcg of fentanyl were injected intrathecally for posto perative pain control. The remaining facet joints and lamina and transverse processes were then exte nsively decorticated from L2 to L5, and the residual local autograft along with bone morphogenic prot ein and morselized allograft was placed out laterally for L2-L5 posterolateral fusion. An axial rey ce was then placed at the L2-3 level in order to avoid a junctional kyphosis and hardware failure. A drain was then placed. The subcutaneous and intramuscular tissues were re-infiltrated with local a nesthesia, and the wound was closed in a layered fashion using interrupted Vicryl sutures, followed b y Steri-Strips on the skin. COMPLICATIONS: None. DISPOSITION: The patient is currently in the process of being repositioned for extubation. /[id number]/MODL
[2018-03-06] MEDS ORDERED: MAGNESIUM HYDROXIDE 30 ML UDCUP PO PRN (15:47)
[2018-03-06] MEDS ORDERED: BISACODYL 10 MG SUPP PR PRN (15:47)
[2018-03-06] MEDS ORDERED: LACTULOSE 20 GM/30 ML UDCUP PO PRN (15:47)
[2018-03-06] MEDS ORDERED: ONDANSETRON 4 MG/2 ML VIAL IVP PRN ×2 (15:47→16:05)
[2018-03-06] MEDS ORDERED: diphenhydrAMINE 25 MG CAP PO PRN (15:47)
[2018-03-06] MEDS ORDERED: ONDANSETRON DISINTEGRATING 4 MG TAB PO PRN (15:47)
--- NOTE | 2018-03-06 15:47 | POSTOPPROG ---
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 L2/3 and L4/5 TLIF, L2-5 fusion Findings: DJD, stenosis, right L2/3 facet cyst Inf/Abcess present in the surg proc area at time of surgery?: No EBL: 100-500 Complications: none Drains: David Soto (to bulb suction) Specimen(s): none
[2018-03-06] MEDS ORDERED: LR 500 ML IV PRN (16:05)
[2018-03-06] MEDS ORDERED: fentaNYL 100 MCG/2 ML INJ IVP PRN (16:05)
[2018-03-06] MEDS ORDERED: NALOXONE HCL 0.4 MG/ML INJ IVP PRN (16:05)
[2018-03-06] MEDS ORDERED: LABETALOL HCL 5 MG/ML 20 ML MDV IVP PRN (16:05)
--- NOTE | 2018-03-06 16:50 | PDMN ---
Medical Necessity Medical necessity: [facility] IP only surgery; cpt 13700 Removal of Instrumentation 65162 Lumbar Fusion
[2018-03-06] MEDS: POLYETHYLENE GLYCOL 3350 17 GM PKT PO SCH ×2 (17:35→21:53)
[2018-03-06] MEDS: ATORVASTATIN CALCIUM 10 MG TAB PO SCH (18:19)
[2018-03-06] MEDS: ceFAZolin 2 GM/DEXTROSE 100 ML IV SCH (20:18)
[2018-03-06] MEDS: morphINE SR 15 MG TAB PO SCH (20:18)
[2018-03-06] MEDS: SENNOSIDES/DOCUSATE SODIUM TAB PO SCH (20:18)
[2018-03-06] MEDS: FAMOTIDINE 20 MG TAB PO SCH (20:18)
[2018-03-06] MEDS: ACETAMINOPHEN 500 MG TAB PO SCH (21:53)
[2018-03-06] MEDS: GABAPENTIN 300 MG CAP PO SCH (21:54)
[2018-03-07 04:52] LABS: PLATELET COUNT 179 10^3/uL (150-400)
[2018-03-07] MEDS: ceFAZolin 2 GM/DEXTROSE 100 ML IV SCH (04:57)
[2018-03-07] MEDS: ACETAMINOPHEN 500 MG TAB PO SCH ×3 (05:00→21:54)
[2018-03-07] MEDS: GABAPENTIN 300 MG CAP PO SCH ×3 (05:01→21:54)
[2018-03-07] MEDS ORDERED: NS BOLUS 500 ML IV ONE (06:00)
--- NOTE | 2018-03-07 07:29 | SOAPPROG ---
SOAP Progress Note Assessment/Plan: Assessment: POD #1 -doing well sp/ L3/4 hdwr removal and L2/3 and L4/5 TLIF with L2-5 fusion -hypotensive overnight with low urine output (200ml), this is likely due to intrathecal narcotics- currently receiving IV fluids -asymptomatic -pain well controlled Plan: continue IV fluids continue AVINASH drain PT/OT as tolerated after IV fluids infused Xrays today if she can tolerate them Subjective: lying flat in bed, comfortable and states her pain is well controlled Feeling fine. Objective: Vital Signs Temp Pulse Resp BP Pulse Ox 36.3 C 59 L 16 71/46 L 96 03/07/18 04:00 03/07/18 04:00 03/07/18 04:00 03/07/18 04:00 03/07/18 04:00 Laboratory Results 03/07/18 04:33 03/07/18 04:33 03/06/18 03/07/18 03/08/18 05:59 05:59 05:59 Intake Total 2700 Output Total 1470 Balance 1230 ICD10 Worksheet Patient Problems: Problems Problem Status Onset Fusion of spine of lumbar region Acute
[2018-03-07] MEDS: ENOXAPARIN 40 MG/0.4 ML SYR SC SCH (10:27)
[2018-03-07] MEDS: SENNOSIDES/DOCUSATE SODIUM TAB PO SCH ×2 (10:27→21:54)
[2018-03-07] MEDS: valACYclovir 500 MG TAB PO SCH (10:27)
[2018-03-07] MEDS: FAMOTIDINE 20 MG TAB PO SCH ×3 (10:27→21:55)
[2018-03-07] MEDS: POLYETHYLENE GLYCOL 3350 17 GM PKT PO SCH ×3 (10:28→21:54)
[2018-03-07] MEDS ORDERED: ALBUMIN 5% 250 ML IV ONE (10:30)
[2018-03-07] MEDS: morphINE SR 15 MG TAB PO SCH ×2 (11:12→23:02)
--- NOTE | 2018-03-07 15:07 | ASMTCMCOM ---
CM Note CM Note Notes: Pt had planned hardware removal with TLIF and fusion. PT rec home, OT eval pending. Pt resides with significant other. CM to follow for d/c planning. Date Signed: 03/07/2018 03:06 PM Electronically Signed By:DOUG Carter
[2018-03-07 16:18] LABS: PLATELET COUNT 144 10^3/uL (150-400)
[2018-03-07] MEDS: ATORVASTATIN CALCIUM 10 MG TAB PO SCH (18:20)
[2018-03-07] MEDS: NS 1,000 ML IV SCH (19:38)
[2018-03-08] MEDS: NS 1,000 ML IV SCH ×2 (03:58→11:54)
[2018-03-08] MEDS: ACETAMINOPHEN 500 MG TAB PO SCH ×3 (05:54→21:57)
[2018-03-08] MEDS: GABAPENTIN 300 MG CAP PO SCH ×3 (05:54→21:57)
[2018-03-08] MEDS: oxyCODONE IR 5 MG TAB PO PRN ×2 (05:58→21:57)
[2018-03-08] MEDS: SENNOSIDES/DOCUSATE SODIUM TAB PO SCH ×2 (09:22→21:57)
[2018-03-08] MEDS: valACYclovir 500 MG TAB PO SCH (09:22)
[2018-03-08] MEDS: POLYETHYLENE GLYCOL 3350 17 GM PKT PO SCH ×3 (09:22→23:13)
[2018-03-08] MEDS: ENOXAPARIN 40 MG/0.4 ML SYR SC SCH (09:23)
[2018-03-08] MEDS: morphINE SR 15 MG TAB PO SCH ×2 (09:24→23:12)
[2018-03-08] MEDS: FAMOTIDINE 20 MG TAB PO SCH ×2 (09:26→23:12)
--- NOTE | 2018-03-08 12:37 | NEUSURGPN ---
Assessment/Plan: Assessment/Plan: Assessment: POD #2 -doing well sp/ L3/4 hdwr removal and L2/3 and L4/5 TLIF with L2-5 fusion -hypotensive this am still, dizzy -H/H 9.04/22 down from yesterday. Currently on fluids but not helping -Will give 1 unit PRBC per DrRosa Yuan due to acute blood loss anemia that is symptomatic -pain well controlled -Wants to get up today if BP allows and start PT -X-rays today if able to stand -Dispo planning -Continue AVINASH Drain Subjective: Feeling good in terms of back pain and leg pain much improved but very dizzy and not able to get up yet due to this. O: NAD, VSS BLE 12/30= incision c/d/i AVINASH X1- serosang in blub, to full suction Sensation intact to lt touch Catheter Insertion Date: 03/06/18 - Physician Discussed Patient with : [facility] Physical Exam - Vitals, I&O, Labs I and O 03/07/18 03/08/18 03/09/18 05:59 05:59 05:59 Intake Total 2700 3553 Output Total 1470 1155 340 Balance 1230 2398 -340 Weight 56.699 kg Intake: Oral (ml) 900 IV Intake (ml) 1800 IV Infused (ml) 3553 Albumin 5% 250 ml @ As 250 Directed IV ONCE ONE Rx#: [id number] Ns 1,000 ml @ 125 mls/hr 2603 IV CONT JJ Rx#: [id number] Ns 500 ml @ As Directed 500 IV ONCE ONE Rx#: [id number] ceFAZolin 2 GM/DEXTROSE 200 100 ml @ 200 mls/hr IV Q8H [facility] Rx#:[id number] Output: Urine (ml) 975 900 300 Bedside Commode 400 300 Catheter 975 500 Estimated Blood Loss (ml) 275 AVINASH Drain Output (ml) 220 255 40 David Soto 220 255 40 Other: Intake Quantity Yes Sufficient Number of Voids Bedside Commode 1 Post Void Residual Scan Volume (ml) Bedside Commode 150 Vital Signs Temp Pulse Resp BP Pulse Ox 36.4 C 59 L 18 94/67 L 94 03/08/18 11:57 03/08/18 11:57 03/08/18 11:57 03/08/18 11:57 03/08/18 11:57 Laboratory Results 03/07/18 16:00 03/07/18 16:00 ICD10 Worksheet Patient Problems: Problems Problem Status Onset Fusion of spine of lumbar region Acute
[2018-03-08] MEDS: ATORVASTATIN CALCIUM 10 MG TAB PO SCH (18:45)
[2018-03-09] MEDS: ACETAMINOPHEN 500 MG TAB PO SCH (05:47)
[2018-03-09] MEDS: GABAPENTIN 300 MG CAP PO SCH (05:47)
--- NOTE | 2018-03-09 07:18 | SOAPPROG ---
SOAP Progress Note Assessment/Plan: Assessment: POD #3 -doing well sp/ L3/4 hdwr removal and L2/3 and L4/5 TLIF with L2-5 fusion -pain controlled - denies dizzyness or nausea Plan: DC home today. Continue AVINASH drain LSO when OOB 03/09/18 07:15 03/09/18 07:30 Subjective: lying in bed, comfortable. States her leg pain is improved Eager to go home today. Objective: Vital Signs Temp Pulse Resp BP Pulse Ox 36.5 C 64 16 123/72 H 93 03/09/18 04:00 03/09/18 04:00 03/09/18 04:00 03/09/18 04:00 03/09/18 04:00 Laboratory Results 03/07/18 16:00 03/07/18 16:00 03/08/18 03/09/18 03/10/18 05:59 05:59 05:59 Intake Total 3553 450 Output Total 1155 390 Balance 2398 60 Neuro: FULLER, sens +LT Dressing: CDI AVINASH: 90ml Post op xrays show well positioned hardware Surgical pathology specimen: consistent with Synovial cyst ICD10 Worksheet Patient Problems: Problems Problem Status Onset Fusion of spine of lumbar region Acute
[2018-03-09 07:33] VITALS: BP 124/73
--- NOTE | 2018-03-09 07:38 | PDIAF ---
- Diagnosis Code Status: Full Code - Medication Management Discharge Medications: Medications to Continue on Transfer Atorvastatin Calcium [Lipitor 10 mg (*)] 10 mg PO DAILY18 09/01/16 [Last Taken 03/05/18] Docusate Sodium [Colace 100 MG (*)] 100 mg PO HS 01/24/17 [Last Taken 03/05/18] valACYclovir [Valtrex (*)] 500 mg PO DAILY 01/31/17 [Last Taken 03/05/18] Gabapentin [Neurontin 300 MG (*)] 300 mg PO TID 02/15/18 [Last Taken 03/06/18] Sennosides/Docusate Sodium [Senna-S Tablet] 1 each PO DAILY 02/15/18 [Last Taken 03/05/18] Acetaminophen [Tylenol ES 500 mg (*)] 1,000 mg PO Q8HRS tab 03/09/18 [Last Taken Unknown] Polyethylene Glycol 3350 [Miralax 17 gm (*)] 17 gm PO TID pkt 03/09/18 [Last Taken Unknown] morphINE SR [Ms Contin/Oramorph 15 mg (*)] 15 mg PO BID #45 tab 03/09/18 [Last Taken Unknown] oxyCODONE IR [Oxycodone Ir (*)] 5 - 10 mg PO Q4HRS PRN #60 tab 03/09/18 [Last Taken Unknown] Discharge Medications: Refer to the Discharge Home Medication list for PRN reason. - Orders Services needed: Home Care, Physical Therapy, Occupational Therapy Home Care Face to Face: I certify that this patient was under my care and that I had the required [id number] encounter meeting the encounter requirements on the discharge day. My findings support the fact that the patient is homebound as defined in Home Care Face to Face Continued: CMS Chapter 7 Medicare Benefits Manual 30.1.1 , The condition of the patient is such that there exists a normal inability to leave home and consequently, leaving home would require a considerable and taxing effort. Diet Recommendation: no restrictions on diet Diet Texture: Regular Texture Diet Angel Stockings Discontinue Date: 03/12/18 Wound Care Instructions: check wound daily. Call [phone] with any signs of infection/excess drainage. Check AVINASH daily and record output every 12 hours. Call [phone] Monday03/12/18 for further instructions regarding AVINASH management. Activity/Weight Bearing Restrictions: no lifting over 10 lbs, no bending or twisting Equipment: LSO brace when out of bed. walker for stability Additional Instructions: DC home with lumbar fusion instructions No bending, twisting or lifting over 10 lbs Wear LSo when out of bed Call [phone] with any questions/concerns and to confirm post op appt. - Follow Up Care Current Providers and Referrals: Sonia Tavares MD [Primary Care Provider] - Aldo Stack MD [Medical Doctor] -
[2018-03-09] MEDS: POLYETHYLENE GLYCOL 3350 17 GM PKT PO SCH (08:59)
[2018-03-09] MEDS: SENNOSIDES/DOCUSATE SODIUM TAB PO SCH (09:00)
[2018-03-09] MEDS: FAMOTIDINE 20 MG TAB PO SCH (09:00)
[2018-03-09] MEDS: valACYclovir 500 MG TAB PO SCH (09:00)
[2018-03-09] MEDS: ENOXAPARIN 40 MG/0.4 ML SYR SC SCH (09:00)
[2018-03-09] MEDS: morphINE SR 15 MG TAB PO SCH (09:02)
--- NOTE | 2018-03-09 10:10 | ASMTLACE ---
EN Acuity / Level of Answers: Yes Care: Did the patient have an inpatient admission? Comorbidities - select Answers: Opioid dependence all that apply / Chronic pain # of Emergency department Answers: 0 visits in the last 6 months Score: 7 Date Signed: 03/09/2018 10:09 AM Electronically Signed By:DOUG Carter
--- NOTE | 2018-03-09 10:12 | ASMTCMCOM ---
CM Note CM Note Notes: Pt medically stable for d/c with support of boyfriend and [facility] PT/OT. Orders to be obtained via [employer]. Date Signed: 03/09/2018 10:11 AM Electronically Signed By:DOUG Carter
--- NOTE | 2018-03-09 13:38 | ASDISCHSUM ---
Discharge Information Plan Status:Home with Home Health Medically Cleared to Leave: Discharge Date:03/09/2018 11:45 AM CM D/C Disposition:Home Health Service ADT D/C Disposition:[id number] Projected Discharge Date:03/09/2018 11:00 AM Transportation at D/C: Discharge Delay Reason: Follow-Up Date:03/09/2018 11:00 AM Discharge Slot: Final Diagnosis: Placement Information Referral Type:*Home Health Care Services Referral ID:[id number] Provider Name:[facility] Address 1:[address] [place] [address] Address 2: City:[place] Selection Factors: State:[place] Patient Contact Information Contact Name:CHRISTIANO Relationship:Daughter Address: Work Phone: City: [facility] Phone: [facility] Code: Email: Financial Information Financial Class:Medicare Primary Plan Desc:MEDICARE INPATIENT Primary Plan Number:[id number] Secondary Plan Desc:MAVIS Epic!JENNIFER DOWNEY Secondary Plan Number:[id number] Assessment Information LACE LACE Acuity / Level of Answers: Yes Care: Did the patient have an inpatient admission? Comorbidities - select Answers: Opioid dependence all that apply / Chronic pain # of Emergency department Answers: 0 visits in the last 6 months Score: 7 Date Signed: 03/09/2018 10:09 AM Electronically Signed By:DOUG Carter [facility] Progress Note CM Note CM Note Notes: Pt had planned hardware removal with TLIF and fusion. PT rec home, OT eval pending. Pt resides with significant other. CM to follow for d/c planning. Date Signed: 03/07/2018 03:06 PM Electronically Signed By:DOUG Carter [facility] CM Progress Note CM Note CM Note Notes: Pt medically stable for d/c with support of emmanuel and [facility] PT/OT. Orders to be obtained via [employer]. Date Signed: 03/09/2018 10:11 AM Electronically Signed By:DOUG Carter Intervention Information
--- NOTE | 2018-03-21 12:10 | GDS ---
[f rep st] DISCHARGE SUMMARY DISCHARGE DIAGNOSIS: Severe multilevel lumbar degenerative disk disease and stenosis at L2-3 and L4- 5. The patient is a pleasant 67-year-old female who presented with a history of a prior L3-4 fusion, who developed adjacent level degeneration above and below the current fusion and severe right leg pain a nd back pain. She failed to improve with conservative treatments, felt to be a candidate for surgica l intervention. On 03/06/2018, she was taken to the operating room, where she underwent removal of h ardware at L3-4, followed by L2-3 and L4-5 transfemoral lumbar interbody fusions with L2-5 instrument ation. There were no intraoperative complications. The patient was transferred to the floor postope ratively, where her pain was controlled initially with IV and oral pain medications and muscle relaxa nts, and then she was transitioned to oral pain medication regimen. She was fitted with an LSO brace . She underwent AP and lateral x-rays of the lumbar spine, which demonstrated satisfactory position of her hardware. Her pain was well controlled and she was able to ambulate with Physical Therapy and Occupational Therapy. Postoperatively, the patient did suffer from acute blood-loss anemia that did require 1 unit of packed red blood cell transfusion. Her dizziness improved after the transfusion. On 03/09/2018, the patient met criteria for discharge to home with her AVINASH in place. The patient was instructed to remove her drain on Monday afternoon, 1 day after discharge, per Dr. Stack. The patient was provided discharge instructions regarding lumbar fusion and encouraged to contact our office with any questions or concerns prior to her postop followup appointment in approximately 10-1 4 days. /[id number]/MODL
== END 2018-03-09 11:45 | disposition home health service (06) | DRG 455 ==
LOC: F3N 08:21 → UNDODISIN 03-08 14:42
PROVIDERS: ADMIT Neurological Surgery; ATTEND Neurological Surgery
PROC: 00NY0ZZ Release Lumbar Spinal Cord, Open Approach (ICD-10-PCS; principal; 2018-03-06 10:15)
PROC: 8E0WXBZ Computer Assisted Procedure of Trunk Region (ICD-10-PCS; principal; 2018-03-06 10:15)
PROC: 0SG10AJ Fusion of 2 or more Lumbar Vertebral Joints with Interbody Fusion Device, Posterior Approach, Anterior Column, Open Approach (ICD-10-PCS; principal; 2018-03-06 10:15)
PROC: 0SP004Z Removal of Internal Fixation Device from Lumbar Vertebral Joint, Open Approach (ICD-10-PCS; principal; 2018-03-06 10:15)
PROC: 0SG1071 Fusion of 2 or more Lumbar Vertebral Joints with Autologous Tissue Substitute, Posterior Approach, Posterior Column, Open Approach (ICD-10-PCS; principal; 2018-03-06 10:15)
PROC: 30233N1 Transfusion of Nonautologous Red Blood Cells into Peripheral Vein, Percutaneous Approach (ICD-10-PCS; 2018-03-08)
DX: M51.36 Other intervertebral disc degeneration, lumbar region (principal); I95.81 Postprocedural hypotension; M48.062 Spinal stenosis, lumbar region with neurogenic claudication; M71.38 Other bursal cyst, other site
CPT/HCPCS: 97116-GP; 97161-GP; 97166-GO; 97530-GO; 97535-GO; C1713; C1762; G8978-GP-CK; G8979-GP-CI; G8987-GO-CJ; G8988-GO-CI; J0171; J0690; J1100; J1650; J2274; J2370; J2405; J2704; J3010; J7060; P9016; P9041

== ENCOUNTER → 2018-04-13 | Outpatient (CLI) | payer OTHER | LOC: CIMAGING 12:37 | PROVIDERS: ATTEND Internal Medicine | DX: Z12.31 Encounter for screening mammogram for malignant neoplasm of breast (principal) ==

== ENCOUNTER → 2018-06-01 | Outpatient (CLI) | payer OTHER | LOC: CIMAGING 10:01 | PROVIDERS: ATTEND Physician Assistant Surgical | DX: Z98.1 Arthrodesis status (principal) | CPT/HCPCS: 72100-PO ==

== ENCOUNTER → 2018-09-07 | Outpatient (CLI) | payer OTHER | LOC: CIMAGING 13:39 | PROVIDERS: ATTEND Physician Assistant Surgical | DX: Z98.1 Arthrodesis status (principal) | CPT/HCPCS: 72100-PO ==